=== PATIENT | female | born 1975 | race Caucasian/White ===

== ENCOUNTER 2022-03-20 05:42 | Day surgery (SDC) | payer OTHER ==
[~2022-03-20 05:42] MED LIST: AMLODIPI PO
== END 2022-03-20 12:50 | disposition home or self-care (01) ==
LOC: CIR.AMB 05:42
PROVIDERS: ATTEND Anesthesiology Pain Medicine
DX: M99.43 Connective tissue stenosis of neural canal of lumbar region (principal); M51.27 Other intervertebral disc displacement, lumbosacral region; M51.26 Other intervertebral disc displacement, lumbar region; I10 Essential (primary) hypertension; Z88.8 Allergy status to other drugs, medicaments and biological substances; Z99.89 Dependence on other enabling machines and devices; G47.33 Obstructive sleep apnea (adult) (pediatric)